=== PATIENT | male | born 1955 | race African-American/Black ===

== ENCOUNTER 2019-08-03 15:53 | Emergency (ER) | payer BC ==
[~2019-08-03] VITALS: Ht 175.3 cm; Wt 90.7 kg
[2019-08-03 17:07] LABS: HEMATOCRIT 43.4 % (42.0-52.0); HEMOGLOBIN 14.7 gm/dL (14.0-18.0); MCH 28.8 pg (26.0-34.0); MCHC 33.9 g/dL (28.0-37.0); PLATELET COUNT 128 thou/uL (150-400); RBC 5.11 mil/uL (4.50-6.00); RDW 14.4 % (10.5-14.5); WBC 3.1 thou/uL (4.0-11.0)
[2019-08-03 17:14] LABS: CALCIUM 8.2 mg/dL (8.5-10.1); CREATININE 1.4 mg/dL (0.7-1.3); POTASSIUM 3.9 mmol/L (3.5-5.1)
[2019-08-03 17:21] LABS: ALBUMIN 3.4 g/dL (3.4-5.0); DIRECT BILIRUBIN 0.2 mg/dL (<0.1-0.2); TOTAL BILIRUBIN 0.7 mg/dL (<0.1-1.0); TOTAL PROTEIN 7.1 g/dL (6.4-8.2)
[2019-08-03] MEDS ORDERED: ZOFRAN ODT4 MG PO (18:08)
[2019-08-03 18:09] LABS: ATYPICAL LYMPHS 2 %
[2019-08-03 18:11] LABS: TOXIC GRANULATION 1+
[2019-08-03 18:39] VITALS: BP 148/78
== END 2019-08-03 18:40 | disposition home or self-care (01) ==
LOC: ER 15:53
PROVIDERS: Emergency Medicine
DX: R50.9 Fever, unspecified (principal); R53.81 Other malaise; Z20.828 Contact with and (suspected) exposure to other viral communicable diseases